=== PATIENT | female | born 1980 | race African-American/Black ===

== ENCOUNTER 2017-12-27 16:31 | Emergency (ER) | payer MEDICAID, OTHER ==
[~2017-12-27] VITALS: Ht 172.7 cm; Wt 95.0 kg
[~2017-12-27 16:31] MED LIST: ALBU6.7H9; PREN1TAB19; VIC
[2017-12-27] MEDS ORDERED: CYCLOBENZAPRINE 10MG TABLET PO ONE (21:30)
[2017-12-27] MEDS ORDERED: KETOROLAC 60MG/2ML VIAL IM ONE (21:30)
[2017-12-27 21:45] LABS: CLARITY URINE CLOUDY (CLEAR); COLOR URINE YELLOW (YELLOW); KETONES URINE NEGATIVE (NEGATIVE); LEUKOCYTE ESTERASE URINE NEGATIVE (NEGATIVE); NITRITE URINE NEGATIVE (NEGATIVE); OCCULT BLOOD URINE NEGATIVE (NEGATIVE); PROTEIN URINE NEGATIVE (NEGATIVE); SPECIFIC GRAVITY URINE 1.021 (1.005-1.030); UROBILINOGEN URINE 0.2 E.U./dL (0.2-1.0)
[2017-12-28 00:15] VITALS: BP 118/69
== END 2017-12-28 00:21 | disposition home or self-care (01) ==
LOC: ER 16:31
DX: M54.16 Radiculopathy, lumbar region (principal); Z88.6 Allergy status to analgesic agent; Z88.0 Allergy status to penicillin
CPT/HCPCS: 72131; 81003; 81025; 96372; 99285; J1885